=== PATIENT | male | born 1960 | race Caucasian/White ===

== ENCOUNTER 2022-09-10 09:18 | Outpatient (CLI) | payer BC, SELFPAY ==
[2022-09-10 11:06] LABS: Albumin* 4.8 g/dL (3.3-5.0); Chloride* 104 mmol/L (96-114); Sodium* 137 mmol/L (135-149)
[2022-09-10 11:07] LABS: Potassium* 5.3 mmol/L (3.6-5.1)
[2022-09-10 11:09] LABS: Alanine Aminotransferase* 62 U/L (4-50); Alkaline Phosphatase* 60 U/L (40-150); Aspartate Amino Transferase* 42 U/L (12-35); Bilirubin Total* 0.7 mg/dL (0.1-1.5); Blood Urea Nitrogen* 15 mg/dL (7-30); Carbon Dioxide* 26 mmol/L (20-32); Cholesterol* 160 mg/dL (90-199); Creatinine* 0.7 mg/dL (0.5-1.5); Estimated Glomerular Filt Rate 106 ml/min; Glucose* 137 mg/dL (60-115); Total Protein* 7.5 g/dL (6.0-8.3); Triglycerides* 174 mg/dL (40-149)
[2022-09-10 11:10] LABS: Calcium* 10.5 mg/dL (8.4-10.6); HDL Cholesterol* 51 mg/dL (>=40); LDL Cholesterol Calculated 74 mg/dL (<100)
[2022-09-10 11:18] LABS: Creatinine Urine 20.7 mg/dL
[2022-09-10 11:19] LABS: Microalbumin Creatinine Ratio 40 mg/g (0-30); Microalbumin Urine < 1 mg/dL
[2022-09-10 11:44] LABS: PSA Screen* 0.28 ng/mL (0.10-4.00)
== END 2022-09-10 09:19 | disposition home or self-care (01) ==
LOC: NFLDREF 09:18
PROVIDERS: PCP Internal Medicine; Visit Provider Internal Medicine
DX: Z00.00 Encounter for general adult medical examination without abnormal findings (principal); E11.9 Type 2 diabetes mellitus without complications; I10 Essential (primary) hypertension; E78.5 Hyperlipidemia, unspecified; Z12.5 Encounter for screening for malignant neoplasm of prostate
CPT/HCPCS: 80053; 80061; 82043; 82570; 84153

== ENCOUNTER 2022-11-30 07:10 | Outpatient (CLI) | payer BC, SELFPAY ==
--- NOTE | 2022-11-30 08:40 | W.ANESCHARGE ---
Anesthesia Charges Start Date/Time Anesthesia Start Date: 11/30/22 Anesthesia Start Time: 08:02 Stop Date/Time Anesthesia Stop Date: 11/30/22 Anesthesia Stop Time: 08:32
--- NOTE | 2022-11-30 08:45 | W.ANESCHARGE ---
Anesthesia Charges Start Date/Time Anesthesia Start Date: 11/30/22 Anesthesia Start Time: 08:02 Stop Date/Time Anesthesia Stop Date: 11/30/22 Anesthesia Stop Time: 08:32
== END 2022-11-30 07:11 | disposition home or self-care (01) ==
LOC: OP CLINIC 07:11
PROVIDERS: PCP Internal Medicine; Visit Provider Surgery
DX: Z12.11 Encounter for screening for malignant neoplasm of colon (principal); K63.5 Polyp of colon; K57.30 Diverticulosis of large intestine without perforation or abscess without bleeding; Z86.010 Personal history of colon polyps
CPT/HCPCS: 45385; 811; 88305; J2704

== ENCOUNTER 2023-03-22 07:59 | Outpatient (CLI) | payer BC, SELFPAY | END 2023-03-22 08:00 | disposition home or self-care (01) | LOC: NFLDREF 03-23 10:22 | PROVIDERS: PCP Internal Medicine; Referring Provider Internal Medicine; Visit Provider Internal Medicine | DX: E11.9 Type 2 diabetes mellitus without complications (principal); I10 Essential (primary) hypertension; E78.5 Hyperlipidemia, unspecified; Z12.5 Encounter for screening for malignant neoplasm of prostate | CPT/HCPCS: 80053; 80061; 82043; 82570; 84153 ==

== ENCOUNTER 2023-09-14 07:47 | Outpatient (CLI) | payer BC, SELFPAY ==
--- OUTSIDE RECORDS SUMMARY | 2023-09-19 05:21 | XMS_ITS | Clinical Summary ---
Author Name Unknown Organization [facility] Address [place], [place] [address] Care Team Providers Care Intake Assessor Name Role Phone Chandler Ray MD Primary Care Provider [phone] Allergies Active Allergy Reactions Criticality Noted Date Comments Aspirin, Buffered *Unknown - Childhood Rxn 06/06/2013 Possible hives and vomiting Medications Medication Sig Dispensed Refills Start Date End Date Status lisinopril (PRINIVIL; ZESTRIL) 20 mg tablet Take 1 tablet by mouth once daily. 0 09/03/2013 Active [place]-3 Fatty Acids (FISH OIL) 500 mg capsule Take 1 capsule by mouth once daily. 0 09/03/2013 Active atorvastatin (LIPITOR) 20 mg tablet Take 1 tablet by mouth once daily. 0 09/03/2013 Active aspirin 81 mg tablet Take 1 tablet by mouth once daily with a meal. 0 09/03/2013 Active multivitamin (MVI) tablet Take 1 tablet by mouth once daily. 0 09/03/2013 Active Ztbrfhbn-Akda-Pmhrnq- Hyalur Ac 834-158-87-2 mg cap Take by mouth. 0 09/03/2013 A ctive oxyCODONE-acetaminoph en, 5-325 mg, (PERCOCET) 5-325 mg per tablet Take 1 tablet by mouth every 6-8 hours if needed for pain. 20 tablet 0 08/11/2015 Active oxyCODONE-acetaminoph en, 5-325 mg, (PERCOCET) 5-325 mg per tablet Take 1-2 tablets by mouth every 6 hours as needed 30 tablet 0 08/13/2015 Active Active Problems Problem Noted Date Diagnosed Date Degenerative arthritis of knee, bilateral 2014 Right knee DJD 08/05/2014 Knee osteoarthritis 06/06/2013 Medial meniscus tear 06/06/2013 Family History Medical History Relation Name Comments Diabetes Maternal Grandfather Cancer Maternal Grandmother colon Diabetes Mother Cancer Paternal Grandmother lung Relation Name Status Comments Maternal Grandfather Maternal Grandmother Mother Paternal Grandmother Social History Tobacco Use Types Packs/Day Years Used Date Smoking Tobacco: Never Smokeless Tobacco: Never Alcohol Use Standard Drinks/Week Comments No 0 (1 standard drink = 0.6 oz pur e alcohol) socially Sex and Gender Information Value Date Recorded Sex Assigned at Not on file Gender Identity Not on file Sexual Orientation Not on file Obstetrics History Last Filed Vital Signs Vital Sign Reading Time Taken Comments Blood Pressure 120/80 08/06/2015 3:17 PM [employer] Pulse - - Temperature - - Respiratory Rate - - Oxygen Saturation - - Inhaled Oxygen Concentration - - Weight 111.1 kg (245 lb) 08/06/2015 3:17 PM [employer] Height 175.3 cm (5' 9) 08/06/2015 3:17 PM [employer] Body Mass Index 36.18 08/06/2015 3:17 PM [employer] Plan of Treatment Health Maintenance Due Date Last Done Comments COVID-19 vaccine series (#1) 05/13/1963 Tdap 1973 Depression screening for age 12+ 1974 HIV for age 15-65 1977 BMI (ht and wt on same day) for age 18+ 1980 Hepatitis C screening for ag e 18-79 1980 Tetanus booster 1982 Colonoscopy through age 75 11/11/2007 Lipids for age 45-75 11/11/2007 Zoster (shingles) series for age 50+ (1 of 2) 2012 Influenza for age 50-64 05/06/2023 Pneumococcal series for age 6-64 Aged Out No longer eligible based on patient's age to complete this topic Care Teams Intake Assessor Relationship Specialty Start Date End Date Chandler Ray MD PCP - General 05/29/13
== END 2023-09-14 07:48 | disposition home or self-care (01) ==
LOC: NFLDREF 09-19 05:19
PROVIDERS: PCP Internal Medicine; Referring Provider Internal Medicine; Visit Provider Internal Medicine
DX: E11.9 Type 2 diabetes mellitus without complications (principal); E78.5 Hyperlipidemia, unspecified
CPT/HCPCS: 80053; 80061; 82043; 82570

== ENCOUNTER 2024-09-21 07:28 | Outpatient (CLI) | payer BC, SELFPAY | END 2024-09-21 07:29 | disposition home or self-care (01) | LOC: NFLDREF 09-24 07:02 | PROVIDERS: PCP Internal Medicine; Referring Provider Internal Medicine; Visit Provider Internal Medicine | DX: I10 Essential (primary) hypertension (principal); E78.5 Hyperlipidemia, unspecified; E11.9 Type 2 diabetes mellitus without complications; Z12.5 Encounter for screening for malignant neoplasm of prostate | CPT/HCPCS: 80053; 80061; 82043; 82570; G0103 ==